=== PATIENT | male | born 1975 | race Caucasian/White ===

== ENCOUNTER → 2016-09-01 | Outpatient (CLI) | payer BC | LOC: KOH-I 09:11 | DX: R20.2 Paresthesia of skin (principal) | CPT/HCPCS: 72110 ==

== ENCOUNTER → 2016-09-20 | Outpatient (CLI) | payer BC | LOC: EMI 09-16 18:15 → KOH-I 15:00 | DX: M54.5 Low back pain (principal); R20.0 Anesthesia of skin; M51.27 Other intervertebral disc displacement, lumbosacral region | CPT/HCPCS: 72148 ==

== ENCOUNTER 2016-10-06 05:16 | Emergency (ER) | payer BC ==
[2016-10-06 07:53] LABS: HEMOGLOBIN 15.3 gm/dl (14.0-17.5); RED BLOOD COUNT 4.87 M/UL (4.20-5.50); WHITE BLOOD COUNT 4.9 K/UL (4.5-11.0)
[2016-10-06 08:14] LABS: BUN/CREATININE RATIO 13 (0-10)
== END 2016-10-06 10:04 | disposition home or self-care (01) ==
LOC: ER1 05:16
PROVIDERS: Emergency Medicine
DX: N45.1 Epididymitis (principal); R10.30 Lower abdominal pain, unspecified; I10 Essential (primary) hypertension; Z88.0 Allergy status to penicillin; Z88.1 Allergy status to other antibiotic agents; Z88.8 Allergy status to other drugs, medicaments and biological substances; Z79.899 Other long term (current) drug therapy
CPT/HCPCS: 36415; 76870; 80053; 81001; 83690; 85025; 87086; 99284; J0696

== ENCOUNTER → 2021-12-24 | Outpatient (CLI) | payer BC | LOC: KOH-I 09:41 | DX: J32.9 Chronic sinusitis, unspecified (principal) | CPT/HCPCS: 70486 ==